=== PATIENT | male | born 1980 | race American Indian/Alaskan Native ===

== ENCOUNTER 2016-07-13 01:21 | Emergency (ER) | payer SELFPAY ==
[2016-07-13 03:35] VITALS: BP 115/58
== END 2016-07-13 03:30 | disposition left against medical advice (07) ==
LOC: ED 01:21
DX: S99.921A Unspecified injury of right foot, initial encounter (principal); Z53.21 Procedure and treatment not carried out due to patient leaving prior to being seen by health care provider; W22.8XXA Striking against or struck by other objects, initial encounter; Y93.89 Activity, other specified; Y99.8 Other external cause status; Y92.89 Other specified places as the place of occurrence of the external cause